=== PATIENT | male | born 1950 | race African-American/Black ===

== ENCOUNTER 2018-05-29 10:21 | Inpatient (IN) | payer OTHER, MEDICARE ==
[~2018-05-29] VITALS: Ht 167.6 cm; Wt 84.0 kg
[2018-05-29 11:34] LABS: MICROSCOPIC AUTO
[2018-05-29 11:35] LABS: CULTURE INDICATED? NO
[2018-05-29 11:41] LABS: BASOPHILS # (AUTO) 0.03 x10^3/uL (0-0.1); BASOPHILS % (AUTO) 0 % (0-1); EOSINOPHILS # (AUTO) 0.25 x10^3/uL (0-0.4); EOSINOPHILS % (AUTO) 3 % (1-7); LYMPHOCYTES % (AUTO) 22 % (22-44); MD NO; MEAN CORPUSCULAR HEMOGLOBIN 26.5 pg (27.5-34.5); MEAN CORPUSCULAR HGB CONC 32.3 g/dL (33.2-36.2); MEAN PLATELET VOLUME 9.9 fL (7.4-10.4); MONOCYTES # (AUTO) 0.53 x10^3/uL (0.2-0.8); MONOCYTES % (AUTO) 6 % (2-9); NEUTROPHILS # (AUTO) 6.09 x10^3/uL (1.8-6.8); NEUTROPHILS % (AUTO) 69 % (42-75); PLATELET COUNT 349 x10^3/uL (130-400); RED BLOOD COUNT 4.02 x10^6/uL (4.38-5.82); RED CELL DISTRIBUTION WIDTH 18.7 % (9.4-14.8)
[2018-05-29 11:51] LABS: ALBUMIN 3.5 g/dL (3.4-5.0); ANION GAP 12 mmol/L (5-15); CHLORIDE 105 mmol/L (98-107); SALICYLATE LEVEL 4.6 mg/dL (2.8-20.0)
[2018-05-29 11:56] LABS: ALANINE AMINOTRANSFERASE 25 U/L (12-78); ALKALINE PHOSPHATASE 82 U/L (45-117); BILIRUBIN,TOTAL 0.4 mg/dL (0.2-1.0); TOTAL PROTEIN 7.8 g/dL (6.4-8.2); TROPONIN I < 0.015 ng/mL (0.000-0.045)
[2018-05-29 12:00] LABS: ACETAMINOPHEN < 2 mcg/mL (10-30)
[2018-05-29] MEDS ORDERED: SODIUM CHLORIDE 0.9%, 500ML IVBOLUS ONE (12:30)
[2018-05-29] MEDS ORDERED: INSULIN REGULAR 100 UNITS/ML, 3ML VIAL SQ-INSULIN STA (13:15)
[2018-05-29 13:42] VITALS: BP 171/88
[2018-05-29] MEDS ORDERED: ENALAPRILAT 1.25 MG/ML, 2ML IVPush PRN (14:30)
[2018-05-29] MEDS ORDERED: ENOXAPARIN 40 MG/0.4 ML SQ SCH (14:30)
[2018-05-29 15:39] LABS: FREE T4 (FREE THYROXINE) 1.2 ng/dL (0.76-1.46); THYROID STIMULATING HORMONE 0.405 mIU/L (0.358-3.740)
[2018-05-29] MEDS ORDERED: INSULIN LISPRO 100 UNITS/ML, PEN SQ-INSULIN SCH (16:00)
[2018-05-29] MEDS ORDERED: GLIMEPIRIDE 4 MG TABLET PO ONE (17:30)
[2018-05-29] MEDS ORDERED: LUTE1CAP PO (17:47)
[2018-05-29] MEDS ORDERED: INDO50CA5 PO (17:47)
[2018-05-29] MEDS ORDERED: PARO20TA4 PO (17:47)
[2018-05-29] MEDS ORDERED: LOVA40TA2 PO (17:47)
[2018-05-29] MEDS ORDERED: ALLO300T PO (17:47)
[2018-05-29] MEDS ORDERED: IBUP-1222 PO (17:47)
[2018-05-29] MEDS ORDERED: LISI40TA PO (17:47)
[2018-05-29] MEDS ORDERED: METF500T27 PO (17:47)
[2018-05-29] MEDS ORDERED: AMLO5TAB7 PO (17:47)
[2018-05-29] MEDS ORDERED: GLIP5TAB22 PO (17:47)
[2018-05-30] MEDS ORDERED: GLIPizide ER 5 MG TABLET PO SCH (08:00)
[2018-05-30] MEDS ORDERED: ALLOPURINOL 100 MG TABLET PO SCH (09:00)
[2018-05-30] MEDS ORDERED: AMLODIPINE 5 MG TABLET PO SCH (09:00)
[2018-05-30] MEDS ORDERED: LOSARTAN 50MG TABLET PO SCH (09:00)
[2018-05-30] MEDS ORDERED: PAROXETINE 20 MG TABLET PO SCH (09:00)
[2018-05-30] MEDS ORDERED: GLIMEPIRIDE 4 MG TABLET PO SCH (09:00)
== END 2018-05-29 19:10 | disposition left against medical advice (07) | DRG 637 ==
LOC: ED 12:51 → EDIP 13:07 → SUATTDRO 13:57 → 3NE 14:50
PROVIDERS: ADMIT Hospitalist; ATTEND Hospitalist
DX: E11.00 Type 2 diabetes mellitus with hyperosmolarity without nonketotic hyperglycemic-hyperosmolar coma (NKHHC) (principal); G93.40 Encephalopathy, unspecified; E87.2 Acidosis; D64.9 Anemia, unspecified; E11.22 Type 2 diabetes mellitus with diabetic chronic kidney disease; E86.0 Dehydration; I12.9 Hypertensive chronic kidney disease with stage 1 through stage 4 chronic kidney disease, or unspecified chronic kidney disease; N18.3 Chronic kidney disease, stage 3 (moderate); R31.29 Other microscopic hematuria; Z85.47 Personal history of malignant neoplasm of testis; Z86.010 Personal history of colon polyps; Z86.73 Personal history of transient ischemic attack (TIA), and cerebral infarction without residual deficits; Z91.14 Patient's other noncompliance with medication regimen; E11.65 Type 2 diabetes mellitus with hyperglycemia; Z88.8 Allergy status to other drugs, medicaments and biological substances
CPT/HCPCS: 36415; 70450; 80053; 80307; 80329; 81001; 82140; 82962; 83605; 84439; 84443; 84484; 85025; 93005; 93970; 99285; G0378; G0480; J1815